=== PATIENT | male | born 1955 | race Caucasian/White ===

== ENCOUNTER → 2022-01-29 12:13 | Outpatient (CLI) | payer MEDICARE, SELFPAY ==
--- NOTE | 2022-01-29 12:29 | XR_ITS ---
FINAL REPORT CLINICAL HISTORY: PNEUMONIA, soa x3 weeks FINDINGS: TWO-VIEW CHEST The heart size is normal. The mediastinum is normal. There is bilateral bronchial wall thickening consistent with bronchitis. There is mild bibasilar atelectasis or pneumonia. There is no pneumothorax. IMPRESSION: Bronchitis. Bibasilar atelectasis or pneumonia. Reviewed, Interpreted and Dictated by Kings Mcgowan III, MD Transcribed by Fani Barragan Authenticated and [facility]
== END ==
PROVIDERS: PCP Nurse Practitioner; Visit Provider Nurse Practitioner
DX: J18.9 Pneumonia, unspecified organism (principal)
CPT/HCPCS: 71046

== ENCOUNTER → 2022-09-01 14:46 | Outpatient (CLI) | payer MEDICARE, SELFPAY ==
--- NOTE | 2022-09-01 14:52 | XR_ITS ---
FINAL REPORT CLINICAL HISTORY: puncture wound wrist with cellulitis hand/forearm FINDINGS: Right wrist Three views were obtained. There is no acute fracture or dislocation. The joint spaces appear normal. No radiopaque foreign body is identified. No gas is seen in the soft tissues. IMPRESSION: No acute process. Reviewed, Interpreted and Dictated by Casa Adkins MD Transcribed by Fain Barragan Authenticated and [facility]
== END ==
PROVIDERS: PCP Nurse Practitioner; Visit Provider Nurse Practitioner
DX: M25.531 Pain in right wrist (principal); S61.531A Puncture wound without foreign body of right wrist, initial encounter; L03.113 Cellulitis of right upper limb
CPT/HCPCS: 73110

== ENCOUNTER → 2022-09-02 11:06 | Outpatient (CLI) | payer MEDICARE, SELFPAY | PROVIDERS: PCP Nurse Practitioner; Visit Provider Nurse Practitioner | DX: L03.113 Cellulitis of right upper limb (principal); S61.539A Puncture wound without foreign body of unspecified wrist, initial encounter | CPT/HCPCS: 87070; 87205 ==